=== PATIENT | male | born 1955 | race African-American/Black ===

== ENCOUNTER 2021-07-13 15:10 | Emergency (ER) | payer SELFPAY ==
[~2021-07-13] VITALS: Ht 175.3 cm; Wt 73.0 kg
[2021-07-13 15:18] VITALS: BP 103/72
== END 2021-07-13 16:38 | disposition left against medical advice (07) ==
LOC: ER 15:10
DX: R55 Syncope and collapse (principal); E78.00 Pure hypercholesterolemia, unspecified; I10 Essential (primary) hypertension
CPT/HCPCS: 99283

== ENCOUNTER 2022-05-14 15:56 | Emergency (ER) | payer BC, MEDICAID, OTHER ==
[~2022-05-14] VITALS: Ht 172.7 cm; Wt 76.0 kg
[2022-05-14 19:54] LABS: BASOPHILS % 0.3 % (0.0-2.0); EOSINOPHILS % 2.8 % (0.0-5.0); HEMATOCRIT. 40.9 % (42.0-52.0); HEMOGLOBIN. 13.3 g/dL (14.0-18.0); LYMPHOCYTES % 17.9 % (20.0-50.0); MEAN CORPUSCULAR HEMOGLOBIN 27.8 pg (28.0-32.0); MEAN CORPUSCULAR VOLUME 85.6 fL (80.0-94.0); MEAN PLATELET VOLUME 9.9 fl (7.4-10.4); MONOCYTES % 5.5 % (2.0-8.0); NEUTROPHILS % 73.5 % (40.0-76.0); PLATELET 168 x1000/uL (130-400); RED BLOOD CELL COUNT 4.78 mill/uL (4.7-6.1)
[2022-05-14 20:19] LABS: CHLORIDE 104 mEq/L (98-107)
[2022-05-14 22:10] VITALS: BP 119/86
== END 2022-05-14 22:20 | disposition short-term general hospital (02) ==
LOC: ER 15:56
DX: R55 Syncope and collapse (principal); I10 Essential (primary) hypertension; E78.00 Pure hypercholesterolemia, unspecified; Z20.822 Contact with and (suspected) exposure to COVID-19
CPT/HCPCS: 36415; 71045; 80053; 83880; 84484; 85025; 87426; 93005; 99285; C9803